=== PATIENT | female | born 1955 | race Caucasian/White ===

== ENCOUNTER 2020-03-07 20:10 | Inpatient (IN) | payer OTHER ==
[~2020-03-07] VITALS: Ht 172.7 cm; Wt 82.7 kg
[2020-03-07 20:13] VITALS: BP 128/94
--- NOTE | 2020-03-07 21:42 | NUR ---
ASSISTED DR RODAS AND IZZY DONAHUE WREATH AND GARLAND MAKER AT BEDSIDE IN ATTEMPTS AT REDUCING THE ANKLE
[2020-03-07 23:15] LABS: BASO % 0.4 % (0.0-1.0); EOS % 0.2 % (1.0-4.0); HEMATOCRIT 39.4 % (37.0-47.0); LYMPH # 1.1 10*3/uL (1.3-4.4); LYMPH % 11.7 % (27.0-41.0); MEAN CELL VOLUME 95.6 fl (81.0-99.0); MEAN CORPUSCULAR HGB 31.3 pg (27.0-31.0); MEAN CORPUSCULAR HGB CONC 32.7 g/dl (33.0-37.0); MONO # 0.4 10*3/uL (0.1-1.0); MONO % 3.7 % (3.0-9.0); NEUT # 8.1 10*3/uL (2.3-7.9); NEUT % 83.6 % (47.0-73.0); PLATELET COUNT AUTOMATED 206 10*3/uL (130-400); RED BLOOD COUNT 4.12 10*6/uL (4.10-5.10); RED CELL DISTRI WIDTH 13.1 % (0-14.5); WHITE BLOOD COUNT 9.7 10*3/uL (4.8-10.8)
[2020-03-07 23:31] LABS: ALBUMIN 3.9 gm/dl (3.1-4.5); ALKALINE PHOSPHATASE 60 U/L (45-117); BUN 12 mg/dl (7-24); CHLORIDE 102 mmol/L (98-107); CREATININE 0.55 mg/dL (0.55-1.02); POTASSIUM 3.8 mmol/L (3.5-5.1); SGOT/AST 14 IU/L (3-35); SGPT/ALT 19 U/L (12-78); SODIUM 134 mmol/L (136-145); TOTAL PROTEIN 7.2 gm/dL (6.4-8.2)
[2020-03-08] VITALS (12 sets, daily range): BP systolic 127–156; BP diastolic 71–87
--- NOTE | 2020-03-08 00:45 | NUR ---
PODIATRY AT BEDSIDE DOING BLOCK AND ATTEMPTING TO REDUCE.
--- NOTE | 2020-03-08 01:08 | NUR ---
THE DAUGHTER HIIDIE TOOK THE PURSE AND 4 RINGS.
--- NOTE | 2020-03-08 02:08 | NUR ---
Time: 207 A 64 year old F admitted to 5E under services of DOMINICK CAREY DO. Pt. arrived via bed from ER. Chief complaint: FELL THIS EVENING WATERING CHEW AND CAUSING INJURY TO LEFT ANKLE. DENVER FIORE
[2020-03-08] MEDS ORDERED: ENALAPRIL MALEA20 MG PO (02:25)
--- NOTE | 2020-03-08 03:19 | NUR ---
REQUESTED AND RECEIVED MORPHINE IV PER PRN ORDER FOR COMPLAINTS OF LEFT ANKLE PAIN RATING A 6. CALL LIGHT WITHIN REACH. WILL MONITOR
--- NOTE | 2020-03-08 04:00 | NUR ---
EARLIER MEDS APPEAR EFFECTIVE. SLEEPING. RESPIRATIONS EASY. CALL LIGHT WITHIN REACH
--- NOTE | 2020-03-08 06:09 | NUR ---
MEDICATED WITH NORCO PER PRN ORDER FOR COMPLAINTS OF LEFT ANKLE PAIN RATING A 9. CALL LIGHT WITHIN REACH. WILL MONITOR
--- NOTE | 2020-03-08 06:50 | NUR ---
EARLIER MEDS APPEAR EFFECTIVE. RESTING WITH EYES CLOSED. RESPIRATIONS EASY. CALL LIGHT WITHIN REACH.
[2020-03-08 07:09] LABS: BASO % 0.3 % (0.0-1.0); EOS # 0.1 10*3/uL (0.0-0.4); EOS % 0.7 % (1.0-4.0); HEMATOCRIT 38.4 % (37.0-47.0); LYMPH # 2.1 10*3/uL (1.3-4.4); LYMPH % 21.6 % (27.0-41.0); MEAN CELL VOLUME 96.2 fl (81.0-99.0); MEAN CORPUSCULAR HGB 31.3 pg (27.0-31.0); MEAN CORPUSCULAR HGB CONC 32.6 g/dl (33.0-37.0); MONO # 0.9 10*3/uL (0.1-1.0); MONO % 9.2 % (3.0-9.0); NEUT # 6.8 10*3/uL (2.3-7.9); NEUT % 67.9 % (47.0-73.0); PLATELET COUNT AUTOMATED 194 10*3/uL (130-400); RED BLOOD COUNT 3.99 10*6/uL (4.10-5.10); RED CELL DISTRI WIDTH 13.2 % (0-14.5); WHITE BLOOD COUNT 9.9 10*3/uL (4.8-10.8)
[2020-03-08 07:37] LABS: ALBUMIN 3.7 gm/dl (3.1-4.5); CHLORIDE 104 mmol/L (98-107); POTASSIUM 3.7 mmol/L (3.5-5.1); SODIUM 137 mmol/L (136-145)
[2020-03-08 07:51] LABS: ALKALINE PHOSPHATASE 61 U/L (45-117); BUN 10 mg/dl (7-24); CREATININE 0.48 mg/dL (0.55-1.02); SGOT/AST 18 IU/L (3-35); SGPT/ALT 20 U/L (12-78)
--- NOTE | 2020-03-08 08:05 | NUR ---
PATIENT TAKEN DOWN TO OR FOR SCHEDULED PROCEDURE.
--- NOTE | 2020-03-08 09:47 | NUR ---
PHYSICAL THERAPY Physical therapy evaluation attempted. Patient out of room for surgery. Diagnosis of Left trimalleolar fracture. Will follow to complete skilled PT evaluation following surgical procedure. Thank you. Erlinda Tobias,PT,DPT
--- NOTE | 2020-03-08 13:54 | NUR ---
PATIENT RETURNED TO ROOM FROM SCHEDULED PROCEDURE. PT ALERT AND ORIENTED. 02 IN USE VIA 2LNC. RESPIRATIONS EASY, REGULAR. LUNCH TRAY ORDERED FOR PATIENT. BULKY CAST NOTED TO LLE. TEDS/SCD TO RLE. WILL CONTINUE TO MONITOR. CALL LIGHT WITHIN REACH.
--- NOTE | 2020-03-08 14:43 | NUR ---
NORCO GIVEN PER PRN ORDER FOR C/O PAIN TO LEFT ANKLE S/P ORIF. RATES PAIN 02/15. WILL MONITOR EFFECTIVENESS. CALL LIGHT WITHIN REACH.
--- NOTE | 2020-03-08 15:43 | NUR ---
NORCO EFFECTIVE PER PT. WILL CONTINUE TO MONITOR.
--- NOTE | 2020-03-08 20:08 | NUR ---
MEDICATED WITH PRN NORCO FOR C/O LEFT FOOT PAIN. WILL MONITOR
--- NOTE | 2020-03-08 21:08 | NUR ---
MEDICATION EFFECTIVE PER PATIENT
[2020-03-09] VITALS: BP 124/68
--- NOTE | 2020-03-09 00:47 | NUR ---
MEDICATED WITH PRN NORCO FOR C/O LEFT LEG PAIN. WILL MONITOR
--- NOTE | 2020-03-09 01:36 | NUR ---
PATIENT RESTING WITH EYES CLOSED. RESPS EASY AND REGULAR. MEDICATION SEEMS EFFECTIVE
--- NOTE | 2020-03-09 05:14 | NUR ---
MEDICATED WITH PRN NORCO FOR C/O LEFT ANKLE PAIN. WILL MONITOR
--- NOTE | 2020-03-09 06:09 | NUR ---
MEDICATION EFFECTIVE PER PATIENT
[2020-03-09 06:13] LABS: BASO % 0.2 % (0.0-1.0); HEMATOCRIT 36.3 % (37.0-47.0); LYMPH # 1.7 10*3/uL (1.3-4.4); LYMPH % 13.3 % (27.0-41.0); MEAN CELL VOLUME 96.5 fl (81.0-99.0); MEAN CORPUSCULAR HGB 31.1 pg (27.0-31.0); MEAN CORPUSCULAR HGB CONC 32.2 g/dl (33.0-37.0); MEAN PLATELET VOLUME 9.1 fl (9.6-12.3); MONO # 1.2 10*3/uL (0.1-1.0); NEUT # 9.8 10*3/uL (2.3-7.9); NEUT % 77.1 % (47.0-73.0); PLATELET COUNT AUTOMATED 191 10*3/uL (130-400); RED BLOOD COUNT 3.76 10*6/uL (4.10-5.10); WHITE BLOOD COUNT 12.8 10*3/uL (4.8-10.8)
[2020-03-09 06:28] LABS: BUN 13 mg/dl (7-24); CHLORIDE 105 mmol/L (98-107); CREATININE 0.79 mg/dL (0.55-1.02); POTASSIUM 4.1 mmol/L (3.5-5.1); SODIUM 138 mmol/L (136-145)
[2020-03-09 08:00] VITALS: BP 134/75
--- NOTE | 2020-03-09 09:19 | NUR ---
NORCO GIVEN PER PATIENT REQUEST FOR COMPAINTS OF LEFT LOWER EXTREMITY PAIN RATED 8/10. WILL ASSESS EFFECTIVENESS.
--- NOTE | 2020-03-09 10:15 | NUR ---
NORCO EFFECTIVE PER PATIENT. WILL CONTINUE TO MONITOR.
--- NOTE | 2020-03-09 10:35 | NUR ---
PHYSICAL THERAPY Eval completed at the bedside pt will be discharged to home with family assist spoke w case management reg equipment needs. Family in for caregiver training/session for home/steps/amb safety use of equipment/safety. Per pt and family member feel comfortable with activity, pt able to maintain NWB of LLE well with only occasional cues. Full report to follow recommend Home Health to follow at discharge. Yue Gray PT
[2020-03-09 12:00] VITALS: BP 124/65
--- NOTE | 2020-03-09 12:11 | NUR ---
Professional Skater in to talk to patient. Patient states lives at HOME with . There are 3 OUTSIDE steps in the home. Physician: RSOS BARNEY [facility]acy: [facility] Home health services: NONE Patient's level of ADLs: INDEPENDENT Patient has working utilities: YES DME: NONE Follow-up physician's appointment after d/c: WILL BE MADE BY HOSPITALIST NURSE DIRECTOR ON DISCHARGE Does patient want to access PORTAL?: NO Discharge plan PT LIVES AT HOME WITH HER AND IS INDEPENDENT IN HER CARE DENIES SHE WILL HAVE ANY NEEDS ON DISCHARGE. PLAN IS TO RETURN HOME WHEN MEDICALLY STABLE. WILL CONTINUE TO FOLLOW. WILL HAVE A RIDE HOME PER PT.. THEA FERRERA
--- NOTE | 2020-03-09 12:13 | NUR ---
BACK TO TALK TO PT ABOUT WHEELED WALKER. PT AND VISITOR STATE THEY JUST TALKED TO A HOME COMPANY IN [place] AND THEY HAVE WALKERS IN STOCK. THEY STATE THEY WILL STOP AND GET IT ON WAY HOME. CALLED [facility] HOSPITALIST NURSE DIRECTOR TO GET SCRIP FOR WHEELED WALKER.
--- NOTE | 2020-03-09 12:54 | NUR ---
PT MEDICATED WITH NORCO AT THIS TIME FOR COMPLAINTS OF PAIN IN RIGHT FOOT 7-04/17. WILL MONITOR FOR EFFECTIVENESS.
--- NOTE | 2020-03-09 13:50 | NUR ---
NORCO EFFECTIVE PER PATIENT. WILL CONTINUE TO MONITOR
[2020-03-09] MEDS ORDERED: DOXYCYCLINE100 MG PO (14:01)
[2020-03-09] MEDS ORDERED: TRAMADOL HCL50 MG PO (14:01)
[2020-03-09] MEDS ORDERED: XARELTO10 MG PO (14:01)
--- NOTE | 2020-03-09 14:09 | NUR ---
PERSCRIPTION FOR WHEELED WALKER GIVEN TO PT.
--- NOTE | 2020-03-09 15:20 | NUR ---
Discharge instructions reviewed with patient/family. Patient receptive and verbalizes understanding. Follow-up care arranged. Written instructions given to patient/family. YIN RODRÍGUEZ
== END 2020-03-09 15:20 | disposition home or self-care (01) | DRG 493 ==
LOC: ED 20:10 → 5E 03-08 01:54 → EDHOLD 03-08 01:54 → 5E 03-08 01:57
PROVIDERS: Emergency Medicine; Student in an Organized Health Care Education/Training Program; ADMIT Internal Medicine
PROC: 2W3MX1Z Immobilization of Left Lower Extremity using Splint (ICD-10-PCS; 2020-03-07)
PROC: 0QBM0ZZ Excision of Left Tarsal, Open Approach (ICD-10-PCS; principal; 2020-03-08)
PROC: 0QUK07Z Supplement Left Fibula with Autologous Tissue Substitute, Open Approach (ICD-10-PCS; principal; 2020-03-08)
PROC: 0QSK04Z Reposition Left Fibula with Internal Fixation Device, Open Approach (ICD-10-PCS; principal; 2020-03-08)
DX: S82.852A Displaced trimalleolar fracture of left lower leg, initial encounter for closed fracture (principal); E87.1 Hypo-osmolality and hyponatremia; E83.51 Hypocalcemia; F10.929 Alcohol use, unspecified with intoxication, unspecified; R73.9 Hyperglycemia, unspecified; F17.210 Nicotine dependence, cigarettes, uncomplicated; F10.920 Alcohol use, unspecified with intoxication, uncomplicated; I10 Essential (primary) hypertension; W17.89XA Other fall from one level to another, initial encounter; Y93.89 Activity, other specified; Y92.89 Other specified places as the place of occurrence of the external cause; Y99.8 Other external cause status; Z71.6 Tobacco abuse counseling; Z88.0 Allergy status to penicillin; Z79.899 Other long term (current) drug therapy; Z80.9 Family history of malignant neoplasm, unspecified; Z98.51 Tubal ligation status

== ENCOUNTER 2024-01-31 13:28 | Emergency (ER) | payer MEDICARE ==
[~2024-01-31] VITALS: Ht 172.7 cm; Wt 77.1 kg
[~2024-01-31 13:28] MED LIST: DOXYCYCLINE100 MG PO; ENALAPRIL MALEA20 MG PO; TRAMADOL HCL50 MG PO; XARELTO10 MG PO
[2024-01-31] MEDS ORDERED: Albuterol Sulf/Ipratropium 3 ML VIAL NEB ONE (14:10)
[2024-01-31] MEDS ORDERED: methylPREDNISolone sod succ 125 MG VIAL IM ONE (14:10)
[2024-01-31 14:21] LABS: BASO % 0.4 % (0.0-1.0); EOS # 0.1 10*3/uL (0.0-0.4); EOS % 0.5 % (1.0-4.0); HEMATOCRIT 42.1 % (37.0-47.0); LYMPH # 1.6 10*3/uL (1.3-4.4); LYMPH % 15.9 % (27.0-41.0); MEAN CELL VOLUME 98.4 fl (81.0-99.0); MEAN CORPUSCULAR HGB 31.5 pg (27.0-31.0); MEAN CORPUSCULAR HGB CONC 32.1 g/dl (33.0-37.0); MEAN PLATELET VOLUME 8.8 fl (9.6-12.3); MONO # 0.6 10*3/uL (0.1-1.0); MONO % 6.4 % (3.0-9.0); NEUT # 7.5 10*3/uL (2.3-7.9); NEUT % 76.6 % (47.0-73.0); PLATELET COUNT AUTOMATED 223 10*3/uL (130-400); RED BLOOD COUNT 4.28 10*6/uL (4.10-5.10); RED CELL DISTRI WIDTH 12.8 % (0-14.5); WHITE BLOOD COUNT 9.7 10*3/uL (4.8-10.8)
[2024-01-31 14:35] LABS: BUN 8 mg/dl (9-23); CHLORIDE 104 mmol/L (98-107); POTASSIUM 4.4 mmol/L (3.4-5.1)
[2024-01-31] MEDS ORDERED: PREDNISONE10 MG PO (15:43)
== END 2024-01-31 15:49 | disposition home or self-care (01) ==
LOC: ED 13:28
PROVIDERS: Physician Assistant Medical
DX: J44.1 Chronic obstructive pulmonary disease with (acute) exacerbation (principal); I10 Essential (primary) hypertension; E78.5 Hyperlipidemia, unspecified; F41.9 Anxiety disorder, unspecified; F17.200 Nicotine dependence, unspecified, uncomplicated; Z88.0 Allergy status to penicillin; Z79.899 Other long term (current) drug therapy; Z98.51 Tubal ligation status